=== PATIENT | male | born 1970 | race Caucasian/White ===

== ENCOUNTER 2017-10-09 12:30 | Inpatient (IN) | payer OTHER ==
[2017-10-09] MEDS ORDERED: morphine CARPU-JECT 4 MG/1 ML DISP.SYRIN IVPUSH ONE (12:55)
[2017-10-09] MEDS ORDERED: SODIUM CHLORIDE 1,000 ML IV STA (12:56)
[2017-10-09] MEDS ORDERED: ONDANSETRON 4 MG/2 ML VIAL IVPUSH ONE (12:56)
--- NOTE | 2017-10-09 13:02 | PDOC ---
History of Present Illness - General Chief Complaint: Pain Stated Complaint: RIGHT ABD PAIN Time Seen by Provider: 10/09/17 12:52 History Source: Patient Exam Limitations: No Limitations - History of Present Illness Travel History: No Initial Comments: 10/09/17 12:57 47 y/o male with RUQ pain since last evening around 6 pm. No fever or chills. Vomited once last night, no diarrhea. No fall or trauma. No SOB or chest pain. Patient has been sober for several years and had one beer last night. No rash, fever or chills. Pain goes to back mildly. Timing/Duration: reports: constant Quality: reports: moderate Abdominal Pain Onset Location: reports: RUQ Pain Radiation: reports: no radiation Past History - Past Medical History Allergies/Adverse Reactions: Allergies Allergy/AdvReac Type Severity Reaction Status Date / Time No Known Allergies Allergy Verified 10/09/17 12:53 Home Medications: Ambulatory Orders Wheat Dextrin [Benefiber] 1 each PO TID #0 powd.pack 02/10/16 Anemia: No Asthma: No Cancer: No Cardiac Disorders: No CVA: No COPD: No CHF: No Dementia: No Diabetes: No GI Disorders: Yes (RECTAL BLEEDING) Disorders: No HTN: Yes (DIET CONTROLLED) Hypercholesterolemia: Yes (DIET CONTROLLED) Liver Disease: No Seizures: No Thyroid Disease: No - Suicide/Smoking/Psychosocial Hx Smoking History: Never smoked Hx Alcohol Use: Yes (SOCIAL) Drug/Substance Use Hx: No Substance Use Type: None Hx Substance Use Treatment: No Review of Systems - Review of Systems Able to Perform ROS?: Yes Is the patient limited Norwegian proficient: Yes Constitutional: No: Chills, Fever Respiratory: No: Cough, Shortness of Breath Cardiac (ROS): No: Chest Pain ABD/GI: Yes: Nausea, Vomiting. No: Diarrhea : No: Dysuria All Other Systems: Reviewed and Negative *Physical Exam - Physical Exam General Appearance: Yes: Nourished, Appropriately Dressed, Mild Distress HEENT: positive: EOMI, MICHELLE, Normal ENT Inspection, Pharynx Normal Neck: positive: Trachea midline, Normal Thyroid, Supple. negative: Tender, Rigid, Carotid bruit Respiratory/Chest: positive: Lungs Clear, Normal Breath Sounds. negative: Chest Tender, Respiratory Distress Cardiovascular: positive: Regular Rhythm, Regular Rate, S1, S2. negative: Edema , JVD, Murmur Vascular Pulses: Femoral (R): 4+, Femoral (L): 4+, Carotid (R): 4+, Carotid (L) : 4+, Dorsalis-Pedis (R): 4+, Doralis-Pedis (L): 4+ Gastrointestinal/Abdominal: positive: Normal Bowel Sounds, Tender (RUQ tenderness, mild mid epigastric tenderness, no LLQ, LUQ or RLQ tenderness, +BS, no pulsatile mass ntoed), Flat, Soft. negative: Organomegaly, Hepatomegaly, Spleenomegaly Lymphatic: negative: Adenopathy, Tenderness, Other Musculoskeletal: positive: Normal Inspection. negative: CVA Tenderness Extremity: positive: Normal Capillary Refill, Normal Inspection, Normal Range of Motion. negative: Tender Integumentary: positive: Normal Color, Dry, Warm. negative: Rash, Ecchymosis, Bruising Neurologic: positive: dental hygienist II-XII NML intact, Fully Oriented, Alert, Normal Mood/ Affect, Normal Response, Motor Strength 01/29 ED Treatment Course - LABORATORY CBC & Chemistry Diagram: 10/09/17 13:00 10/09/17 13:00 - RADIOLOGY Radiology Studies Ordered: Category Date Time Status GALLBLADDER US [US] Stat Ultrasound 10/09/17 12:55 Ordered Progress Note - Progress Note Progress Note: Pt with RUQ tenderness, will obtain labs and pain control Will obtain US RUQ. At 2 pm, case will be endorsed to Dr. Cotto, further orders as per Dr. Cotto Pt feels better after pain medication *DC/Admit/Observation/Transfer Diagnosis at time of Disposition: Abdominal pain Qualifiers: Abdominal location: right upper quadrant Qualified Code(s): R10.11 - Right upper quadrant pain - Discharge Dispostion Condition at time of disposition: Good - Referrals Referrals: Floresita Nascimento MD [Primary Care Provider] - - Patient Instructions - Post Discharge Activity
[2017-10-09 13:12] LABS: HEMATOCRIT 45.1 % (35.4-49); HEMOGLOBIN 15.2 GM/dl (11.7-16.9); LYMPH % 6.6 % (8-40); MCH 32.2 pg (25.7-33.7); MCHC 33.6 g/dl (32.0-35.9); MEAN CELL VOLUME 95.7 fl (80-96); MEAN PLT VOLUME 8.9 fl (7.5-11.1); MONO % 4.9 % (3.8-10.2); NEUT % 86.5 % (42.8-82.8); PH,URINE 6.5 (4.5-8); PLATELET COUNT 296 K/MM3 (134-434); RBC 4.72 M/mm3 (4.00-5.60); RDW 11.8 % (11.9-15.9); URINE APPEARANCE Clear; URINE BILIRUBIN Negative (NEGATIVE); URINE BLOOD Negative (NEGATIVE); URINE COLOR YELLOW; URINE GLUCOSE (UA) Negative (NEGATIVE); URINE KETONE Negative (NEGATIVE); URINE NITRITE Negative (NEGATIVE); URINE PROTEIN Negative (NEGATIVE); URINE UROBILINOGEN 0.2 (0.2-1.0); WHITE BLOOD COUNT 12.6 K/mm3 (4.0-10.8)
[2017-10-09 13:27] LABS: ALBUMIN 4.4 g/dl (3.5-5.0); ALK PHOS 78 U/L (32-92); ANION GAP 8 (8-16); BILIRUBIN,TOTAL 0.7 mg/dl (0.2-1.0); BLOOD UREA NITROGEN 11 mg/dl (7-18); CALCIUM 9.4 mg/dl (8.4-10.2); CHLORIDE 100 mmol/L (98-107); CO2 25 mmol/L (22-28); CREATININE 0.8 mg/dl (0.6-1.3); GLUCOSE,RANDOM 130 mg/dl (74-106); LIPASE 32 U/L (22-51); SGOT/AST 30 U/L (10-42); SGPT/ALT 42 U/L (10-40); SODIUM 133 mmol/L (136-145)
[2017-10-09] MEDS ORDERED: METOCLOPRAMIDE HCL INJECTION 10 MG/2 ML VIAL IVPUSH ONE (15:09)
[2017-10-09] MEDS ORDERED: PIPERACILLIN/TAZOB 4.5 GM/100 ML PREMIX BAG IVPB ONE ×2 (15:09→15:45)
--- NOTE | 2017-10-09 15:16 | PDOC ---
*Physical Exam - Vital Signs Last Vital Signs Temp Pulse Resp BP Pulse Ox 98.8 F 67 16 154/89 96 10/09/17 12:52 10/09/17 12:52 10/09/17 12:52 10/09/17 12:52 10/09/17 12:52 ED Treatment Course - LABORATORY CBC & Chemistry Diagram: 10/09/17 13:00 10/09/17 13:00 - ADDITIONAL ORDERS Additional order review: Laboratory Results 10/09/17 10/09/17 13:00 13:00 Sodium 133 L Potassium 4.0 Chloride 100 Carbon Dioxide 25 Anion Gap 8 BUN 11 Creatinine 0.8 Creat Clearance w eGFR > 60 Random Glucose 130 H Calcium 9.4 Total Bilirubin 0.7 AST 30 ALT 42 H Alkaline Phosphatase 78 Total Protein 8.0 Albumin 4.4 Lipase 32 Urine Color Yellow Urine Appearance Clear Urine pH 6.5 Ur Specific [place] <= 1.005 Urine Protein Negative Urine Glucose (UA) Negative Urine Ketones Negative Urine Blood Negative Urine Nitrite Negative Urine Bilirubin Negative Urine Urobilinogen 0.2 Ur Leukocyte Esterase Negative 10/09/17 13:00 RBC 4.72 MCV 95.7 MCHC 33.6 RDW 11.8 L MPV 8.9 Neutrophils % 86.5 H Lymphocytes % 6.6 L Monocytes % 4.9 Eosinophils % 0.0 Basophils % 2.0 - Medications Given in the ED: ED Medications Discontinued Medications Generic Name Dose Route Start Last Admin Trade Name Freq PRN Reason Stop Dose Admin Sodium Chloride 1,000 mls @ 1,000 mls/hr 10/09/17 12:56 10/09/17 13:05 Normal Saline - IV 10/09/17 13:55 1,000 mls/hr ASDIR STA Administration Morphine Sulfate 4 mg 10/09/17 12:55 10/09/17 13:10 Morphine Injection - IVPUSH 10/09/17 12:56 4 mg ONCE ONE Administration Ondansetron HCl 4 mg 10/09/17 12:56 10/09/17 13:05 Zofran Injection IVPUSH 10/09/17 12:57 4 mg ONCE ONE Administration Medical Decision Making - Medical Decision Making 10/09/17 15:10 Patient presents with right upper quadrant pain. He was endorsed to me at [address] Jeff Grimm. Patient states his right upper quadrant pain is less severe now after having received morphine. He still has mild right upper quadrant tenderness on palpation along the hepatic margin. He has also developed hiccups. Laboratory studies reviewed. Patient has leukocytosis with a white blood cell count of 12.6. He also has 87% neutrophils. On liver function testing, his AST is normal, but his ALT is mildly elevated. His bilirubin is normal. His lipase is normal. Ultrasound of the right upper quadrant shows multiple gallstones with some stones in the region of the gallbladder neck. There is gallbladder wall thickening. There is positive pericholecystic fluid. The clinical symptoms as well as the ultrasound are consistent with acute cholecystitis. Patient will be admitted for IV antibiotics. Surgical consult will be obtained. Laboratory Results - last 24 hr 10/09/17 10/09/17 10/09/17 13:00 13:00 13:00 WBC 12.6 H RBC 4.72 Hgb 15.2 Hct 45.1 MCV 95.7 MCH 32.2 MCHC 33.6 RDW 11.8 L Plt Count 296 MPV 8.9 Neutrophils % 86.5 H Lymphocytes % 6.6 L Monocytes % 4.9 Eosinophils % 0.0 Basophils % 2.0 Sodium 133 L Potassium 4.0 Chloride 100 Carbon Dioxide 25 Anion Gap 8 BUN 11 Creatinine 0.8 Creat Clearance w eGFR > 60 Random Glucose 130 H Calcium 9.4 Total Bilirubin 0.7 AST 30 ALT 42 H Alkaline Phosphatase 78 Total Protein 8.0 Albumin 4.4 Lipase 32 Urine Color Yellow Urine Appearance Clear Urine pH 6.5 Ur Specific [place] <= 1.005 Urine Protein Negative Urine Glucose (UA) Negative Urine Ketones Negative Urine Blood Negative Urine Nitrite Negative Urine Bilirubin Negative Urine Urobilinogen 0.2 Ur Leukocyte Esterase Negative *DC/Admit/Observation/Transfer Diagnosis at time of Disposition: Acute cholecystitis Abdominal pain Qualifiers: Abdominal location: right upper quadrant Qualified Code(s): R10.11 - Right upper quadrant pain - Discharge Dispostion Condition at time of disposition: Improved Admit: Yes Decision to Admit order Date/Time: 10/09/17 15:15 Acute cholecystitis, needs antibiotics and surgical consult. Patient will be admitted. Patient endorsed to [employer] Jeff Vázquez. Patient Dorst to attending Dr. Robert Avalso. - Referrals - Patient Instructions - Post Discharge Activity
[2017-10-09] MEDS ORDERED: PIPERACILLIN/TAZOBACTAM 4.5 GM VIAL IVPB ONE (15:21)
--- NOTE | 2017-10-09 15:30 | HP ---
CHIEF COMPLAINT: RUQ pain PCP: none HISTORY OF PRESENT ILLNESS: This is a 47-year-old male with past medical history of hyperlipidemia presents for care today with 1 day of right upper quadrant pain. Patient states pain was a gradual onset which started after eating dinner last night. For dinner the patient had rice, lentils, chicken, avocado, and 2 beers. Patient started approximately 1-1/2 hours after finishing meal. Patient states he vomited multiple times throughout the night area patient remains nauseous at this time. Patient's states hiccups started approximately one hour prior to arrival in the hospital. He denies fevers, chills, chest pain, shortness of breath, diarrhea, dysuria. ER course was notable for: (1) U/S with gallstones and gall bladder thickening (2) Leukocytosis- 12.6 (3) LFT's WNL except ALT-42 Recent Travel: denies PAST MEDICAL HISTORY: see hpi PAST SURGICAL HISTORY: see hpi Social History: Smoking: denies Alcohol: occasional Drugs: denies Family History: Allergies No Known Allergies Allergy (Verified 10/09/17 12:53) HOME MEDICATIONS: Home Medications Medication Instructions Recorded Wheat Dextrin [Benefiber] 1 each PO TID #0 powd.pack 02/10/16 REVIEW OF SYSTEMS CONSTITUTIONAL: Absent: fever, chills, diaphoresis, generalized weakness, malaise, loss of appetite, weight change HEENT: Absent: rhinorrhea, nasal congestion, throat pain, throat swelling, difficulty swallowing, mouth swelling, ear pain, eye pain, visual changes CARDIOVASCULAR: Absent: chest pain, syncope, palpitations, irregular heart rate, lightheadedness , peripheral edema RESPIRATORY: Absent: cough, shortness of breath, dyspnea with exertion, orthopnea, wheezing, stridor, hemoptysis GASTROINTESTINAL: Present- abdominal pain, nausea, vomiting Absent: abdominal distension, diarrhea, constipation, melena, hematochezia GENITOURINARY: Absent: dysuria, frequency, urgency, hesitancy, hematuria, flank pain, genital pain MUSCULOSKELETAL: Absent: myalgia, arthralgia, joint swelling, back pain, neck pain SKIN: Absent: rash, itching, pallor HEMATOLOGIC/IMMUNOLOGIC: Absent: easy bleeding, easy bruising, lymphadenopathy, frequent infections ENDOCRINE: Absent: unexplained weight gain, unexplained weight loss, heat intolerance, cold intolerance NEUROLOGIC: Absent: headache, focal weakness or paresthesias, dizziness, unsteady gait, seizure, mental status changes, bladder or bowel incontinence PSYCHIATRIC: Absent: anxiety, depression, suicidal or homicidal ideation, hallucinations. PHYSICAL EXAMINATION Vital Signs - 24 hr 10/09/17 12:52 Temperature 98.8 F Pulse Rate 67 Respiratory 16 Rate Blood Pressure 154/89 O2 Sat by Pulse 96 Oximetry (%) GENERAL: Awake, alert, and fully oriented, in no acute distress. HEAD: Normal with no signs of trauma. EYES: Pupils equal, round and reactive to light, extraocular movements intact, sclera anicteric, conjunctiva clear. No lid lag. EARS, NOSE, THROAT: Ears normal, nares patent, oropharynx clear without exudates. Moist mucous membranes. NECK: Normal range of motion, supple without lymphadenopathy, JVD, or masses. LUNGS: Breath sounds equal, clear to auscultation bilaterally. No wheezes, and no crackles. No accessory muscle use. HEART: Regular rate and rhythm, normal S1 and S2 without murmur, rub or gallop. ABDOMEN: Soft, not distended, normoactive bowel sounds, no guarding, no rebound , no masses. TTP over RUQ. (+) Singh's sign. No hepatomegaly or splenomegaly. MUSCULOSKELETAL: Normal range of motion at all joints. No bony deformities or tenderness. No CVA tenderness. UPPER EXTREMITIES: 2+ pulses, warm, well-perfused. No cyanosis. No clubbing. No peripheral edema. LOWER EXTREMITIES: 2+ pulses, warm, well-perfused. No calf tenderness. No peripheral edema. NEUROLOGICAL: Cranial nerves II-XII intact. Normal speech. Normal gait. PSYCHIATRIC: Cooperative. Good eye contact. Appropriate mood and affect. SKIN: Warm, dry, normal turgor, no rashes or lesions noted, normal capillary refill. Laboratory Results - last 24 hr 10/09/17 10/09/17 10/09/17 13:00 13:00 13:00 WBC 12.6 H RBC 4.72 Hgb 15.2 Hct 45.1 MCV 95.7 MCH 32.2 MCHC 33.6 RDW 11.8 L Plt Count 296 MPV 8.9 Neutrophils % 86.5 H Lymphocytes % 6.6 L Monocytes % 4.9 Eosinophils % 0.0 Basophils % 2.0 Sodium 133 L Potassium 4.0 Chloride 100 Carbon Dioxide 25 Anion Gap 8 BUN 11 Creatinine 0.8 Creat Clearance w eGFR > 60 Random Glucose 130 H Calcium 9.4 Total Bilirubin 0.7 AST 30 ALT 42 H Alkaline Phosphatase 78 Total Protein 8.0 Albumin 4.4 Lipase 32 Urine Color Yellow Urine Appearance Clear Urine pH 6.5 Ur Specific [place] <= 1.005 Urine Protein Negative Urine Glucose (UA) Negative Urine Ketones Negative Urine Blood Negative Urine Nitrite Negative Urine Bilirubin Negative Urine Urobilinogen 0.2 Ur Leukocyte Esterase Negative ASSESSMENT/PLAN: A: 47-year-old male with history of hyperlipidemia admitted for cholecystitis. P: Cholecystitis - NPO - Zosyn 4.5g q8h - Surgical Consult - marylan Oliver - [place] - [place] F/E/N - NS@125 - NPO PPX - sqh Dispo- requires inpatient treatment of acute medical condition Visit type - Emergency Visit Emergency Visit: Yes ED Registration Date: 10/09/17 Care time: The patient presented to the Emergency Department on the above date and was hospitalized for further evaluation of their emergent condition. - New Patient This patient is new to me today: Yes Date on this admission: 10/10/17 - Critical Care Critical Care patient: No
[2017-10-09] MEDS ORDERED: PIPERACILLIN/TAZOB 4.5 GM/100 ML PRE-DOCKED IVPB SCH (16:15)
[2017-10-09 18:18] VITALS: BMI 33.6
[2017-10-09] MEDS: METOCLOPRAMIDE HCL 10 MG TABLET (FP) PO SCH ×2 (18:26→21:13)
[2017-10-09] MEDS: HEPARIN NA (PORCINE) 5,000 UNITS/ML 1ML VIAL SQ SCH (21:13)
[2017-10-10] MEDS ORDERED: PIPERACILLIN/TAZOB 4.5 GM/100 ML PRE-DOCKED IVPB ONE (02:00)
[2017-10-10] MEDS: SODIUM CHLORIDE 1,000 ML IV SCH (07:07)
[2017-10-10 08:32] LABS: BASO % 0.4 % (0-2.0); EOS % 0.5 % (0-4.5); HEMATOCRIT 41.2 % (35.4-49); HEMOGLOBIN 14.3 GM/dl (11.7-16.9); LYMPH % 24.1 % (8-40); MCHC 34.7 g/dl (32.0-35.9); MEAN CELL VOLUME 95.1 fl (80-96); MEAN PLT VOLUME 9.2 fl (7.5-11.1); MONO % 8.9 % (3.8-10.2); NEUT % 66.1 % (42.8-82.8); PLATELET COUNT 263 K/MM3 (134-434); RBC 4.33 M/mm3 (4.00-5.60); RDW 11.9 % (11.9-15.9)
[2017-10-10 08:54] LABS: ALBUMIN 3.8 g/dl (3.5-5.0); ALK PHOS 67 U/L (32-92); ANION GAP 9 (8-16); BLOOD UREA NITROGEN 10 mg/dl (7-18); CALCIUM 8.9 mg/dl (8.4-10.2); CHLORIDE 103 mmol/L (98-107); CO2 24 mmol/L (22-28); CREATININE 0.9 mg/dl (0.6-1.3); GLUCOSE,RANDOM 84 mg/dl (74-106); POTASSIUM 3.9 mmol/L (3.5-5.1); SGOT/AST 24 U/L (10-42); SGPT/ALT 36 U/L (10-40); SODIUM 136 mmol/L (136-145)
[2017-10-10] MEDS: HEPARIN NA (PORCINE) 5,000 UNITS/ML 1ML VIAL SQ SCH (09:19)
[2017-10-10] MEDS: METOCLOPRAMIDE HCL 10 MG TABLET (FP) PO SCH ×4 (09:19→21:46)
--- NOTE | 2017-10-10 09:52 | PN ---
Physical Exam: SUBJECTIVE: Patient seen and examined. Denies all c/o at present. OBJECTIVE: Vital Signs Period Temp Pulse Resp BP Sys/Aleman Pulse Ox Last 24 Hr 97.8 F-99.1 F 67-72 16-18 116-154/67-89 94-96 GENERAL: The patient is awake, alert, and fully oriented, in no acute distress. LUNGS: Breath sounds equal, clear to auscultation bilaterally, no wheezes, no crackles, no accessory muscle use. HEART: Regular rate and rhythm, S1, S2 without murmur, rub or gallop. ABDOMEN: SNTND NEUROLOGICAL: Cranial nerves II through XII grossly intact. Normal speech. Laboratory Results - last 24 hr 10/09/17 10/09/17 10/09/17 13:00 13:00 13:00 WBC 12.6 H RBC 4.72 Hgb 15.2 Hct 45.1 MCV 95.7 MCH 32.2 MCHC 33.6 RDW 11.8 L Plt Count 296 MPV 8.9 Neutrophils % 86.5 H Lymphocytes % 6.6 L Monocytes % 4.9 Eosinophils % 0.0 Basophils % 2.0 Sodium 133 L Potassium 4.0 Chloride 100 Carbon Dioxide 25 Anion Gap 8 BUN 11 Creatinine 0.8 Creat Clearance w eGFR > 60 Random Glucose 130 H Calcium 9.4 Total Bilirubin 0.7 AST 30 ALT 42 H Alkaline Phosphatase 78 Total Protein 8.0 Albumin 4.4 Lipase 32 Urine Color Yellow Urine Appearance Clear Urine pH 6.5 Ur Specific [place] <= 1.005 Urine Protein Negative Urine Glucose (UA) Negative Urine Ketones Negative Urine Blood Negative Urine Nitrite Negative Urine Bilirubin Negative Urine Urobilinogen 0.2 Ur Leukocyte Esterase Negative 10/10/17 10/10/17 06:00 06:00 WBC 8.0 D RBC 4.33 Hgb 14.3 Hct 41.2 MCV 95.1 MCH 33.0 MCHC 34.7 RDW 11.9 Plt Count 263 MPV 9.2 Neutrophils % 66.1 D Lymphocytes % 24.1 D Monocytes % 8.9 D Eosinophils % 0.5 D Basophils % 0.4 Sodium 136 Potassium 3.9 Chloride 103 Carbon Dioxide 24 Anion Gap 9 BUN 10 Creatinine 0.9 Creat Clearance w eGFR > 60 Random Glucose 84 D Calcium 8.9 Total Bilirubin 1.0 D AST 24 ALT 36 Alkaline Phosphatase 67 Total Protein 7.0 Albumin 3.8 Lipase Urine Color Urine Appearance Urine pH Ur Specific [place] Urine Protein Urine Glucose (UA) Urine Ketones Urine Blood Urine Nitrite Urine Bilirubin Urine Urobilinogen Ur Leukocyte Esterase Active Medications Generic Name Dose Route Start Last Admin Trade Name Freq PRN Reason Stop Dose Admin Diphenhydramine HCl 25 mg 10/09/17 16:03 Benadryl Injection - IVPB Q8H PRN AGITATION Heparin Sodium (Porcine) 5,000 unit 10/09/17 22:00 10/10/17 09:19 Heparin - SQ 5,000 unit BID EDUARDA Administration Sodium Chloride 1,000 mls @ 75 mls/hr 10/10/17 05:15 10/10/17 07:07 Normal Saline - IV 75 mls/hr ASDIR EDUARDA Administration Metoclopramide HCl 10 mg 10/09/17 18:00 10/10/17 09:19 Reglan - PO 10 mg QID EDUARDA Administration Piperacillin Sod/Tazobactam Sod 4.5 gm 10/09/17 16:15 Zosyn 4.5gm Ivpb (Pre-Docked) IVPB Q8H EDUARDA Imaging: RAD/CHEST PA LAT ADDENDUM ADDENDUM #1 Michelle LOCKETT MD notified of findings on 10/10/2017 at 0718 hours. Patient admitted. ORIGINAL REPORT Chest: Right upper quadrant pain. Cholecystitis Imaging reveals an elevated right hemidiaphragm, normal heart, normal aorta and prominent [place]. The lungs are well-inflated. An acute infiltrate or failure is not seen. The angles are sharp and the soft tissues are intact. The may be some focal pleural thickening along the lower left chest wall. The bones and soft tissues appear intact. Impression: No acute pathology. Elevated right hemidiaphragm. Focal pleural thickening lower left chest wall. Correlation and follow-up recommended. CT may be of help for further evaluation. Reported By: Jeff Wolf MD 10/10/[address] chest with IV contrast. Indication: Focal pleural thickening on chest x-ray. Technique: CT of the chest performed following intravenous administration of 100 mL of Omnipaque 320 contrast. Comparison: No prior chest CT. Findings: Large airways of the central tracheobronchial tree are patent with no discrete endobronchial nodularity. There is dependent subsegmental atelectasis in both lung bases. Subsegmental atelectasis versus scarring noted in the lingula and posterior right upper lobe. No evidence of pulmonary mass. No pleural effusion or pneumothorax. Heart is prominent in size. No pericardial effusion. Normal caliber thoracic aorta and main pulmonary arteries. No pathologically enlarged mediastinal, hilar or axillary lymph nodes by CT size criteria. Evaluation of the upper abdomen demonstrates distended gallbladder with wall thickening and pericholecystic fat stranding. No fracture in the visualized osseous structures. Impression: 1. Subsegmental atelectasis in both lung bases. Linear scarring versus atelectasis in the posterior right upper lobe and lingula. 2. Distended gallbladder with wall thickening and pericholecystic fat stranding. Please correlate clinically for acute cholecystitis. Reported By: Michael Abel DO 10/10/17 1312 ASSESSMENT/PLAN: A: 47-year-old male with history of hyperlipidemia admitted for cholecystitis. Given CXR findings- CT chest with IV contrast. P: Cholecystitis - NPO - Zosyn 4.5g q8h - Surgical Consult - reglan Hiccups - [place] - [place] F/E/N - NS@125 - NPO PPX - sqh Dispo- requires inpatient treatment of acute medical condition Visit type - Emergency Visit Emergency Visit: Yes ED Registration Date: 10/09/17 Care time: The patient presented to the Emergency Department on the above date and was hospitalized for further evaluation of their emergent condition. - New Patient This patient is new to me today: No - Critical Care Critical Care patient: No
--- NOTE | 2017-10-10 10:17 | CONSULT ---
- Consultation REQUESTING PROVIDER: Gurpreet SAMUEL CONSULT REQUEST: We have been asked to surgically evaluate this patient for abdominal pain PCP:Jeff Vázquez NP HISTORY OF PRESENT ILLNESS:47 y/o male presented w/ nausea and vomiting and RUQ abdominal pain after eating; he came to the ER for evaluation; w/u is c/w acute cholecystitis and cholelithiasis; he feels better since admission. PMHx: hyperlipidemia PSHx: none Home Medications Medication Instructions Recorded Wheat Dextrin [Benefiber] 1 each PO TID #0 powd.pack 02/10/16 Allergies Allergy/AdvReac Type Severity Reaction Status Date / Time No Known Allergies Allergy Verified 10/09/17 12:53 PHYSICAL EXAM: GENERAL: Awake, alert, and fully oriented, in no acute distress. HEAD: Normal with no signs of trauma. EYES: sclera anicteric, conjunctiva clear. ABDOMEN: Soft, nontender, not distended, normoactive bowel sounds, no guarding, no rebound, no masses. No organomegaly. No hernias. MUSCULOSKELETAL: Normal ROM at all joints. No bony deformities or tenderness. No CVA tenderness. UPPER EXTREMITIES: 2+ pulses, warm, well-perfused. No cyanosis. Cap refill <2 seconds. No peripheral edema. LOWER EXTREMITIES: 2+ pulses, warm, well-perfused. No calf tenderness. No peripheral edema. NEUROLOGICAL: Normal speech, gait not observed. PSYCH: Cooperative. Good eye contact. Appropriate mood and affect. SKIN: Warm, dry, normal turgor, no rashes or lesions noted. Vital Signs Temperature 97.8 F 10/10/17 06:05 Pulse Rate 68 10/10/17 09:25 Respiratory Rate 18 10/10/17 09:25 Blood Pressure 124/67 10/10/17 09:25 O2 Sat by Pulse Oximetry (%) 96 10/10/17 09:25 Lab Results WBC 8.0 K/mm3 (4.0-10.8) D 10/10/17 06:00 RBC 4.33 M/mm3 (4.00-5.60) 10/10/17 06:00 Hgb 14.3 GM/dl (11.7-16.9) 10/10/17 06:00 Hct 41.2 % (35.4-49) 10/10/17 06:00 MCV 95.1 fl (80-96) 10/10/17 06:00 MCHC 34.7 g/dl (32.0-35.9) 10/10/17 06:00 RDW 11.9 % (11.9-15.9) 10/10/17 06:00 Plt Count 263 K/MM3 (134-434) 10/10/17 06:00 Sodium 136 mmol/L (136-145) 10/10/17 06:00 Potassium 3.9 mmol/L (3.5-5.1) 10/10/17 06:00 Chloride 103 mmol/L (98-107) 10/10/17 06:00 Carbon Dioxide 24 mmol/L (22-28) 10/10/17 06:00 Anion Gap 9 (8-16) 10/10/17 06:00 BUN 10 mg/dl (7-18) 10/10/17 06:00 Creatinine 0.9 mg/dl (0.6-1.3) 10/10/17 06:00 Random Glucose 84 mg/dl (74-106) D 10/10/17 06:00 Calcium 8.9 mg/dl (8.4-10.2) 10/10/17 06:00 US; labs reviewed IMP: cholecystitis; cholelithiasis PLAN: Agree w/ tx. to date; for lap jonas possible open 10/11/17; r/b/t/a's d/w the patient in [place] and he agrees to same. Bruno Foley MD FACS Visit type - Case Type Case Type: ED Admission - Emergency Emergency Visit: Yes ED Registration Date: 10/09/17 Care time: The patient presented to the Emergency Department on the above date and was hospitalized for further evaluation of their emergent condition. - New patient This patient is new to me today: Yes Date on this admission: 10/10/17 - Critical Care Critical Care patient: No
[2017-10-10 10:49] LABS: INR 1.15 (0.82-1.09); PROTHROMBIN TIME (PATIENT) 12.8 SEC (10.2-13.0)
[2017-10-10] MEDS ORDERED: PIPERACILLIN/TAZOB 3.375 GM 3.375 GM in DEXTROSE 5%-WATER - 50 ML IVPB SCH (11:15)
[2017-10-10] MEDS: PIPERACILLIN/TAZOB 3.375 GM 3.375 GM/50 ML BAG IVPB SCH (17:52)
[2017-10-11] MEDS: PIPERACILLIN/TAZOB 3.375 GM 3.375 GM/50 ML BAG IVPB SCH ×2 (01:21→09:27)
--- NOTE | 2017-10-11 07:24 | PN ---
Physical Exam: SUBJECTIVE: Patient seen and examined, reports right upper quadrant pain, denies any tactile fever. OBJECTIVE: Patient is a 47 y/o male with a past medical history of hyperlipidemia, patient was admitted from the emergency department for acute cholecytitis. Vital Signs Period Temp Pulse Resp BP Sys/Aleman Pulse Ox Last 24 Hr 98.1 F-98.4 F 60-69 18-19 113-125/64-72 94-96 GENERAL: The patient is awake, alert, and fully oriented, in no acute distress. HEAD: Normal with no signs of trauma. EYES: PERRL, extraocular movements intact, sclera anicteric, conjunctiva clear. No ptosis. ENT: Ears normal, nares patent, oropharynx clear without exudates, moist mucous membranes. NECK: Trachea midline, full range of motion, supple. LUNGS: Breath sounds equal, clear to auscultation bilaterally, no wheezes, no crackles, no accessory muscle use. HEART: Regular rate and rhythm, S1, S2 without murmur, rub or gallop. ABDOMEN: Soft, + moise's sign, nondistended, normoactive bowel sounds, no guarding, no rebound, no hepatosplenomegaly, no masses. EXTREMITIES: 2+ pulses, warm, well-perfused, no edema. NEUROLOGICAL: Cranial nerves II through XII grossly intact. Normal speech, gait not observed. PSYCH: Normal mood, normal affect. SKIN: Warm, dry, normal turgor, no rashes or lesions noted Laboratory Results - last 24 hr 10/10/17 10/10/17 10/10/17 05:30 06:00 06:00 WBC 8.0 D RBC 4.33 Hgb 14.3 Hct 41.2 MCV 95.1 MCH 33.0 MCHC 34.7 RDW 11.9 Plt Count 263 MPV 9.2 Neutrophils % 66.1 D Lymphocytes % 24.1 D Monocytes % 8.9 D Eosinophils % 0.5 D Basophils % 0.4 PT with INR INR Sodium 136 Potassium 3.9 Chloride 103 Carbon Dioxide 24 Anion Gap 9 BUN 10 Creatinine 0.9 Creat Clearance w eGFR > 60 Random Glucose 84 D Calcium 8.9 Total Bilirubin 1.0 D AST 24 ALT 36 Alkaline Phosphatase 67 Total Protein 7.0 Albumin 3.8 Blood Type A POSITIVE Antibody Screen 01/14/18 01/14/18 06:00 10:40 WBC RBC Hgb Hct MCV MCH MCHC RDW Plt Count MPV Neutrophils % Lymphocytes % Monocytes % Eosinophils % Basophils % PT with INR 12.8 INR 1.15 Sodium Potassium Chloride Carbon Dioxide Anion Gap BUN Creatinine Creat Clearance w eGFR Random Glucose Calcium Total Bilirubin AST ALT Alkaline Phosphatase Total Protein Albumin Blood Type A POSITIVE Antibody Screen Negative Active Medications Generic Name Dose Route Start Last Admin Trade Name Freq PRN Reason Stop Dose Admin Diphenhydramine HCl 25 mg 10/09/17 16:03 Benadryl Injection - IVPB Q8H PRN AGITATION Sodium Chloride 1,000 mls @ 75 mls/hr 10/10/17 05:15 10/10/17 07:07 Normal Saline - IV 75 mls/hr ASDIR EDUARDA Administration Piperacillin Sod/Tazobactam Sod 3.375 gm in 50 mls @ 100 mls/hr 10/10/17 11: 55 10/11/17 01:21 Zosyn 3.375gm Ivpb (Pre-Docked) IVPB 10/11/17 11:14 100 mls/hr Q8H-IV EDUARDA Administration Protocol Metoclopramide HCl 10 mg 10/09/17 18:00 10/10/17 21:46 Reglan - PO 10 mg QID EDUARDA Administration Imaging: RAD/CHEST PA LAT ADDENDUM ADDENDUM #1 Michelle LOCKETT MD notified of findings on 10/10/2017 at 0718 hours. Patient admitted. ORIGINAL REPORT Chest: Right upper quadrant pain. Cholecystitis Imaging reveals an elevated right hemidiaphragm, normal heart, normal aorta and prominent [place]. The lungs are well-inflated. An acute infiltrate or failure is not seen. The angles are sharp and the soft tissues are intact. The may be some focal pleural thickening along the lower left chest wall. The bones and soft tissues appear intact. Impression: No acute pathology. Elevated right hemidiaphragm. Focal pleural thickening lower left chest wall. Correlation and follow-up recommended. CT may be of help for further evaluation. Reported By: Jeff Wolf MD 10/10/[address] chest with IV contrast. Indication: Focal pleural thickening on chest x-ray. Technique: CT of the chest performed following intravenous administration of 100 mL of Omnipaque 320 contrast. Comparison: No prior chest CT. Findings: Large airways of the central tracheobronchial tree are patent with no discrete endobronchial nodularity. There is dependent subsegmental atelectasis in both lung bases. Subsegmental atelectasis versus scarring noted in the lingula and posterior right upper lobe. No evidence of pulmonary mass. No pleural effusion or pneumothorax. Heart is prominent in size. No pericardial effusion. Normal caliber thoracic aorta and main pulmonary arteries. No pathologically enlarged mediastinal, hilar or axillary lymph nodes by CT size criteria. Evaluation of the upper abdomen demonstrates distended gallbladder with wall thickening and pericholecystic fat stranding. No fracture in the visualized osseous structures. Impression: 1. Subsegmental atelectasis in both lung bases. Linear scarring versus atelectasis in the posterior right upper lobe and lingula. 2. Distended gallbladder with wall thickening and pericholecystic fat stranding. Please correlate clinically for acute cholecystitis. Reported By: Michael Abel DO 10/10/17 1312 ASSESSMENT/PLAN: 1) GI acute cholecystits -NPO --> IVF, pending OR today - continue zosyn 4.5g TID, appreciate ID input (Dr Ching) for ID improvement - surgery, Dr Foley, consulted and followeing F/E/N - NS@125 - NPO PPX -hold AC for OR today patient is medically optimized for procedure Dispo- requires inpatient treatment of acute medical condition Visit type - Emergency Visit Emergency Visit: Yes ED Registration Date: 10/09/17 Care time: The patient presented to the Emergency Department on the above date and was hospitalized for further evaluation of their emergent condition. - New Patient This patient is new to me today: Yes Date on this admission: 10/11/17 - Critical Care Critical Care patient: No - Discharge Referral Referred to [facility] Med P.C.: No
--- NOTE | 2017-10-11 08:54 | PN ---
Progress Note (short form) - Note Progress Note: ID Consult dictated Acute cholecystitis Leukocytosis R/O biliary sepsis Pending cultures empiric zosyn
[2017-10-11] MEDS: METOCLOPRAMIDE HCL 10 MG TABLET (FP) PO SCH (09:27)
[2017-10-11 09:32] LABS: BASO % 0.3 % (0-2.0); HEMOGLOBIN 13.9 GM/dl (11.7-16.9); LYMPH % 21.8 % (8-40); MCH 31.8 pg (25.7-33.7); MEAN CELL VOLUME 96.5 fl (80-96); MEAN PLT VOLUME 8.9 fl (7.5-11.1); MONO % 7.9 % (3.8-10.2); PLATELET COUNT 274 K/MM3 (134-434); RBC 4.36 M/mm3 (4.00-5.60); RDW 11.9 % (11.9-15.9); WHITE BLOOD COUNT 6.7 K/mm3 (4.0-10.8)
--- NOTE | 2017-10-11 09:57 | CONS ---
DATE OF CONSULTATION: 10/11/2017 INFECTIOUS DISEASE CONSULTATION HISTORY OF PRESENT ILLNESS: Patient is a 47-year-old nondiabetic male evaluated for acute cholecystitis. He was admitted to the hospital on October 09, 2017, after developing right upper quadrant abdominal pain the evening prior. He had developed postprandial right upper quadrant abdominal pain associated with nausea and vomiting. He presented to the emergency room where he was found to have abdominal tenderness. Imaging studies revealed cholelithiasis with gallbladder thickening, pericholecystic fluid, and a dilated common bile duct. In addition, he was noted to have an elevated white blood cell count. He was empirically treated with Zosyn. He was seen in consultation by Surgery and is scheduled to have a cholecystectomy this morning. The patient is a nondiabetic. At the present time, he is awake and alert. He has minimal abdominal discomfort, no recurrent nausea or vomiting. He reports having a bowel movement yesterday. PAST MEDICAL HISTORY: Positive for hyperlipidemia. ALLERGIES: No known allergies. MEDICATIONS: Include Zosyn, Benadryl, Reglan. SOCIAL HISTORY: He is a non-smoker, occasional EtOH, lives at home with family members. SYSTEMS REVIEW: Neurologic: No loss of consciousness, seizure activity, focal weakness. Cardiac: Negative chest pain or palpitations. Respiratory: Negative cough or sputum production. Gastrointestinal: As per HPI. Genitourinary: Negative for UTI. LABORATORY DATA: White count on admission 12.6, presently 8.0, hematocrit 41.2, platelet count 263. BUN 10, creatinine 0.9. ALT 42. Blood cultures pending. Urinalysis leukocyte esterase. PHYSICAL EXAMINATION: General: He is awake and alert, supine in bed, in no acute distress. Vital Signs: Temperature 98.2, blood pressure 110/61, pulse 64 regular, respirations 16 per minute. HEENT: Sclerae anicteric. Heart: Sounds S1, S2. Lungs: Clear bilaterally. No rhonchi, rales, or wheezing. Abdomen: Soft. There are mild right upper quadrant and epigastric tenderness to palpation. No mass, rebound, rigidity. Extremities: One plus edema. IMPRESSION: 1. Acute cholecystitis. 2. Leukocytosis, rule out biliary sepsis. PLAN: Await culture results. Continue empiric coverage biliary tract pathogens with Zosyn. Surgical followup. We will follow. Thank you for the kind referral. ANGELIQUE KUMAR M.D. KAYLA/[id number]
[2017-10-11 10:03] LABS: ALBUMIN 3.6 g/dl (3.5-5.0); ALK PHOS 76 U/L (32-92); ANION GAP 10 (8-16); BILIRUBIN,TOTAL 0.8 mg/dl (0.2-1.0); BLOOD UREA NITROGEN 12 mg/dl (7-18); CALCIUM 8.8 mg/dl (8.4-10.2); CHLORIDE 102 mmol/L (98-107); CO2 22 mmol/L (22-28); CREATININE 0.8 mg/dl (0.6-1.3); GLUCOSE,RANDOM 79 mg/dl (74-106); POTASSIUM 3.7 mmol/L (3.5-5.1); SGOT/AST 29 U/L (10-42); SGPT/ALT 44 U/L (10-40); SODIUM 134 mmol/L (136-145)
[2017-10-11] MEDS ORDERED: FAMOTIDINE IV 20 MG/12 ML VIAL IVPUSH SCH (12:15)
[2017-10-11] MEDS: FAMOTIDINE 20 MG/50 ML IVPB 20 MG/50 ML MG IVPB SCH ×2 (12:41→21:09)
[2017-10-11] MEDS: SODIUM CHLORIDE 1,000 ML IV SCH (12:42)
[2017-10-11] MEDS ORDERED: MIDAZOLAM HCL 2 MG/2 ML SINGLE DOSE VIAL ONE (15:06)
[2017-10-11] MEDS ORDERED: BUPIVACAINE HCL/PF 0.5% (5MG/ML) 10 ML VIAL ONE (15:10)
[2017-10-11] MEDS ORDERED: LIDOCAINE HCL 2% (20ML MULTI-DOSE VIAL) NR ONE (15:10)
[2017-10-11] MEDS ORDERED: LIDOCAINE HCL 1%, 10 MG/ML (20ML VIAL) ONE (15:10)
[2017-10-11] MEDS ORDERED: BUPIVACAINE HCL/PF 2.5 MG/ML - 30 ML VIAL IJ ONE (15:10)
[2017-10-11] MEDS ORDERED: PROPOFOL 20 ML ONE ×2 (15:13)
[2017-10-11] MEDS ORDERED: SUCCINYLCHOLINE CHLORIDE 200 MG/10 ML VIAL ONE (15:13)
[2017-10-11] MEDS ORDERED: ROCURONIUM BROMIDE 50 MG/5 ML VIAL ONE (15:14)
--- NOTE | 2017-10-11 15:45 | EKG ---
Test Reason : Blood Pressure : / mmHG Vent. Rate : 066 BPM Atrial Rate : 066 BPM P-R Int : 188 ms QRS Dur : 112 ms QT Int : 418 ms P-R-T Axes : 018 060 027 degrees QTc Int : 438 ms SINUS RHYTHM RSR' OR QR PATTERN IN V1 SUGGESTS RIGHT VENTRICULAR CONDUCTION DELAY NO PREVIOUS ECGS AVAILABLE Confirmed by INESSA BARRIENTOS MD ([id number]) on 10/11/2017 3:44:57 PM Referred By: DR VIRAMONTES Confirmed By:INESSA BARRIENTOS MD
[2017-10-11] MEDS ORDERED: ONDANSETRON 4 MG/2 ML VIAL ONE (15:50)
[2017-10-11] MEDS ORDERED: DEXAMETHASONE SOD PHOSPHATE 4 MG/1 ML VIAL ONE (15:50)
[2017-10-11] MEDS ORDERED: BUPIVACAINE HCL/PF 0.25% (2.5MG/ML) 10 ML VIAL IJ ONE (17:24)
--- NOTE | 2017-10-11 17:25 | OP ---
Operative Note - Note: Operative Date: 10/11/17 Pre-Operative Diagnosis: acute cholecystitis/cholelithiasis Operation: lap cholecystectomy Surgeon: Bruno Foley Senior Systems Administrator: Tres Lockwood Anesthesia: General Specimens Removed: gallbladder and contents Estimated Blood Loss (mls): 100 Drains & Tubes with Location: 10 mm SHANNA
[2017-10-11] MEDS ORDERED: morphine CARPU-JECT 10 MG/1 ML DISP.SYRIN IVPUSH PRN (17:26)
[2017-10-11] MEDS ORDERED: ACETAMINOPHEN 325 MG TABLET (FP) PO PRN ×2 (17:27→18:15)
[2017-10-11] MEDS ORDERED: ONDANSETRON 4 MG/2 ML VIAL IVPUSH PRN (17:29)
[2017-10-11] MEDS ORDERED: ELECTROLYTE-148 SOLN 1,000 ML IV SCH (17:30)
--- NOTE | 2017-10-11 17:31 | SURG ---
Surgery [employer] Note [employer] Manager: Tres Lockwood PA-C Date of Service: 10/11/17 Diagnosis: acute cholecystitis/cholelithiasis Procedure: Laparoscopic cholecystectomy I was present for the entirety of the operative procedure. For further detail, please refer to operative report. Visit type - Case Type Case Type: ED Admission - Emergency Emergency Visit: Yes ED Registration Date: 10/09/17 Care time: The patient presented to the Emergency Department on the above date and was hospitalized for further evaluation of their emergent condition. - New patient This patient is new to me today: Yes Date on this admission: 10/11/17
[2017-10-11] MEDS ORDERED: oxyCODONE HCL 5 MG TABLET PO PRN (18:15)
[2017-10-11] MEDS ORDERED: LACTATED RINGERS SOLUTION 1,000 ML IV SCH (21:00)
[2017-10-12] MEDS: SODIUM CHLORIDE 1,000 ML IV SCH (07:54)
--- NOTE | 2017-10-12 08:08 | PN ---
Progress Note (short form) - Note Progress Note: Attending Surgeon POD #1 C/O gas; o/w no c/o. VSS AF abdomen-soft; port site tenderness; dressings c/d/i; SHANNA output noted; o/w negative. IMP: doing well PLAN: OOB; advance diet as tolerated; continue SHANNA drain Bruno Foley MD FACS
[2017-10-12 08:27] LABS: HEMOGLOBIN 13.8 GM/dl (11.7-16.9)
--- NOTE | 2017-10-12 09:01 | PN ---
Physical Exam: SUBJECTIVE: Patient seen and examined, sitting up in bed, reports feeling hungry , reports pain to incision site. OBJECTIVE:Patient is a 47 y/o male with a past medical history of hyperlipidemia , patient was admitted from the emergency department for acute cholecytitis and s/p lap cholecytectomy (10/11/17) Vital Signs Period Temp Pulse Resp BP Sys/Aleman Pulse Ox Last 24 Hr 97.9 F-99.3 F 67-100 12-20 116-158/67-88 93-98 GENERAL: The patient is awake, alert, and fully oriented, in no acute distress. HEAD: Normal with no signs of trauma. EYES: PERRL, extraocular movements intact, sclera anicteric, conjunctiva clear. No ptosis. ENT: Ears normal, nares patent, oropharynx clear without exudates, moist mucous membranes. NECK: Trachea midline, full range of motion, supple. LUNGS: Breath sounds equal, clear to auscultation bilaterally, no wheezes, no crackles, no accessory muscle use. HEART: Regular rate and rhythm, S1, S2 without murmur, rub or gallop. ABDOMEN: Soft, hypoactive bowel sounds, SHANNA scant serrous drainage, tenderness to trochar sites, no guarding, no rebound, no hepatosplenomegaly, no masses. EXTREMITIES: 2+ pulses, warm, well-perfused, no edema. NEUROLOGICAL: Cranial nerves II through XII grossly intact. Normal speech, gait not observed. PSYCH: Normal mood, normal affect. SKIN: Warm, dry, normal turgor, no rashes or lesions noted Laboratory Results - last 24 hr 10/11/17 10/11/17 06:00 06:00 WBC 6.7 RBC 4.36 Hgb 13.9 Hct 42.0 MCV 96.5 H MCH 31.8 MCHC 33.0 RDW 11.9 Plt Count 274 MPV 8.9 Neutrophils % 68.0 Lymphocytes % 21.8 Monocytes % 7.9 Eosinophils % 2.0 D Basophils % 0.3 Sodium 134 L Potassium 3.7 Chloride 102 Carbon Dioxide 22 Anion Gap 10 BUN 12 Creatinine 0.8 Creat Clearance w eGFR > 60 Random Glucose 79 Calcium 8.8 Total Bilirubin 0.8 AST 29 D ALT 44 H D Alkaline Phosphatase 76 Total Protein 7.0 Albumin 3.6 Active Medications Generic Name Dose Route Start Last Admin Trade Name Freq PRN Reason Stop Dose Admin Acetaminophen 650 mg 10/11/17 17:27 Tylenol - PO Q6H PRN Fever > 100.3F Acetaminophen 650 mg 10/11/17 18:15 Tylenol - PO 10/14/17 18:14 Q4H PRN Diphenhydramine HCl 25 mg 10/09/17 16:03 Benadryl Injection - IVPB Q8H PRN AGITATION Fentanyl 50 mcg 10/11/17 17:29 10/11/17 17:50 Sublimaze Injection - IVPUSH 25 mcg [id number] PRN Administration PAIN-PACU ORDER X 4 DOSES ONLY Sodium Chloride 1,000 mls @ 75 mls/hr 10/10/17 05:15 10/12/17 07:54 Normal Saline - IV Not Given ASDIR EDUARDA Famotidine/Sodium Chloride 20 mg in 50 mls @ 100 mls/hr 10/11/17 12:45 21:09 Pepcid 20 Mg Premixed Ivpb - IVPB 100 mls/hr BID EDUARDA Administration Lactated Ringer's 1,000 mls @ 75 mls/hr 10/11/17 21:00 10/11/17 21:00 Lactated Ringers Solution IV 75 mls/hr ASDIR EDUARDA Administration Morphine Sulfate 4 mg 10/11/17 17:26 10/12/17 07:53 Morphine Injection - IVPUSH 4 mg Q4H PRN Administration PAIN LEVEL 4 - 6 Ondansetron HCl 4 mg 10/11/17 17:29 Zofran Injection IVPUSH Q6H PRN NAUSEA AND/OR VOMITING Oxycodone HCl 10 mg 10/11/17 18:15 Roxicodone - PO Q4H PRN PAIN LEVEL 1 - 3 Microbiology 10/10/17 11:30 Blood - Peripheral Venous Blood Culture - Preliminary NO GROWTH OBTAINED AFTER 24 HOURS, INCUBATION TO CONTINUE FOR 4 DAYS. 10/10/17 11:30 Blood - Peripheral Venous Blood Culture - Preliminary NO GROWTH OBTAINED AFTER 24 HOURS, INCUBATION TO CONTINUE FOR 4 DAYS. imaging: RAD/CHEST PA LAT ADDENDUM ADDENDUM #1 Michelle LOCKETT MD notified of findings on 10/10/2017 at 0718 hours. Patient admitted. ORIGINAL REPORT Chest: Right upper quadrant pain. Cholecystitis Imaging reveals an elevated right hemidiaphragm, normal heart, normal aorta and prominent [place]. The lungs are well-inflated. An acute infiltrate or failure is not seen. The angles are sharp and the soft tissues are intact. The may be some focal pleural thickening along the lower left chest wall. The bones and soft tissues appear intact. Impression: No acute pathology. Elevated right hemidiaphragm. Focal pleural thickening lower left chest wall. Correlation and follow-up recommended. CT may be of help for further evaluation. Reported By: Jeff Wolf MD 10/10/[address] chest with IV contrast. Indication: Focal pleural thickening on chest x-ray. Technique: CT of the chest performed following intravenous administration of 100 mL of Omnipaque 320 contrast. Comparison: No prior chest CT. Findings: Large airways of the central tracheobronchial tree are patent with no discrete endobronchial nodularity. There is dependent subsegmental atelectasis in both lung bases. Subsegmental atelectasis versus scarring noted in the lingula and posterior right upper lobe. No evidence of pulmonary mass. No pleural effusion or pneumothorax. Heart is prominent in size. No pericardial effusion. Normal caliber thoracic aorta and main pulmonary arteries. No pathologically enlarged mediastinal, hilar or axillary lymph nodes by CT size criteria. Evaluation of the upper abdomen demonstrates distended gallbladder with wall thickening and pericholecystic fat stranding. No fracture in the visualized osseous structures. Impression: 1. Subsegmental atelectasis in both lung bases. Linear scarring versus atelectasis in the posterior right upper lobe and lingula. 2. Distended gallbladder with wall thickening and pericholecystic fat stranding. Please correlate clinically for acute cholecystitis. Reported By: Michael Abel DO 10/10/17 1312 ASSESSMENT/PLAN: 1) GI acute cholecystits, s/p lap jonas POD #1 - clear liquid diet - continue zosyn 4.5g TID, appreciate ID input (Dr Ching) for ID improvement - surgery, Dr Foley, consulted and followeing F/E/N - NS@125 - NPO PPX -hold AC for OR today patient is medically optimized for procedure Dispo- requires inpatient treatment of acute medical condition Visit type - Emergency Visit Emergency Visit: Yes ED Registration Date: 10/09/17 Care time: The patient presented to the Emergency Department on the above date and was hospitalized for further evaluation of their emergent condition. - New Patient This patient is new to me today: No - Critical Care Critical Care patient: No - Discharge Referral Referred to [facility] Med [facility]C.: No
[2017-10-12 09:09] LABS: BASO % 0.6 % (0-2.0); EOS % 0.2 % (0-4.5); HEMATOCRIT 41.4 % (35.4-49); LYMPH % 12.8 % (8-40); MCH 31.8 pg (25.7-33.7); MCHC 33.3 g/dl (32.0-35.9); MEAN CELL VOLUME 95.6 fl (80-96); MEAN PLT VOLUME 8.7 fl (7.5-11.1); MONO % 7.8 % (3.8-10.2); NEUT % 78.6 % (42.8-82.8); PLATELET COUNT 286 K/MM3 (134-434); RBC 4.33 M/mm3 (4.00-5.60); RDW 11.6 % (11.9-15.9); WHITE BLOOD COUNT 9.6 K/mm3 (4.0-10.8)
[2017-10-12 09:12] LABS: ALBUMIN 3.4 g/dl (3.5-5.0); ALK PHOS 75 U/L (32-92); ANION GAP 7 (8-16); BILIRUBIN,TOTAL 0.7 mg/dl (0.2-1.0); BLOOD UREA NITROGEN 15 mg/dl (7-18); CALCIUM 8.6 mg/dl (8.4-10.2); CHLORIDE 103 mmol/L (98-107); CO2 22 mmol/L (22-28); CREATININE 0.7 mg/dl (0.6-1.3); GLUCOSE,RANDOM 89 mg/dl (74-106); MAGNESIUM 1.9 mg/dL (1.8-2.4); PHOSPHOROUS 2.8 mg/dl (2.5-4.6); POTASSIUM 3.8 mmol/L (3.5-5.1); SGOT/AST 38 U/L (10-42); SGPT/ALT 55 U/L (10-40); SODIUM 132 mmol/L (136-145); TOT PROT 6.9 g/dl (6.4-8.3)
[2017-10-12] MEDS: FAMOTIDINE 20 MG/50 ML IVPB 20 MG/50 ML MG IVPB SCH ×2 (09:26→21:40)
--- NOTE | 2017-10-12 10:03 | PN ---
Progress Note (short form) - Note Progress Note: 47M POD1 s/p lap cholecystectomy under GA-ETT doing well. Pt states that pain is well controlled, reports no anesthetic complications. Sensory and motor function intact in bilateral lower extremities.
--- NOTE | 2017-10-12 16:35 | OP ---
DATE OF OPERATION: 10/11/2017 PREOPERATIVE DIAGNOSES: Acute cholecystitis, cholelithiasis. POSTOPERATIVE DIAGNOSES: Acute cholecystitis, cholelithiasis. PROCEDURE: Laparoscopic cholecystectomy. SURGEON: Bruno Foley MD OTA: Tres Lockwood PA-C ANESTHESIA: General. OPERATIVE FINDINGS: Acute cholecystitis, cholelithiasis, and an intrahepatic gallbladder. The rest of the findings were unremarkable. DESCRIPTION OF PROCEDURE: The patient was placed on the operating table in the supine position, and after the induction of general anesthesia, the patient's abdomen was prepped with ChloraPrep and draped in sterile fashion. A timeout was taken and pneumoperitoneum established above the umbilicus using a Veress needle to an intraabdominal pressure of 15 mmHg. A 5-mm supraumbilical port was placed as well as additional lateral 5-mm ports and a subxiphoid 12-mm port. The previously noted findings were observed. The gallbladder was decompressed using an aspirating needle and then grasped, and dissection was begun at the neck of the gallbladder where the peritoneum was opened medially and laterally using electrocautery. Blunt dissection continued to isolate the cystic duct which was identified as coursing from the neck of the gallbladder distally to the common bile duct. It was dissected proximally and distally for length. Next, the artery was identified coursing into the gallbladder, and it too was dissected proximally and distally for length. The peritoneum over the gallbladder was further opened medially and laterally using electrocautery, and then, after critical view of safety was taken, the duct and artery were sequentially divided after placing 2 large hemoclips proximally and distally. The gallbladder was then removed from the liver bed in a retrograde fashion using electrocautery. It was placed in a specimen retrieval bag and brought out through the subxiphoid port. Pneumoperitoneum was re-established, and copious irrigation was carried out using normal saline. Bleeding points in the liver bed were coagulated with the electrocautery and some oozing from the medial aspect of the liver bed was controlled with the placement of Surgicel. Again, hemostasis was verified, and then, a 10- mm Sang-Mues drain was placed in the right hepatorenal fossa and brought out through one of the 5-mm port sites and secured to the skin with 2-0 silk suture. Once again, for the final time, all irrigation was suctioned out. Hemostasis was verified, and then, the pneumoperitoneum was evacuated after all ports were removed under laparoscopic vision without evidence of bleeding from the port sites. The defect in the fascia at the subxiphoid port was closed with a [id number] 0 Vicryl, and all port sites were infiltrated with 0.50% Marcaine and the skin edges reapproximated with 4-0 Vicryl in a subcuticular continuous fashion. Steri-Strips and Band-Aid dressings were placed, and the drain was connected to bulb self-suction. The patient was aroused from general anesthesia and transferred to the postanesthesia care unit in stable condition, awake and alert. ESTIMATED BLOOD LOSS: 100 mL REPLACEMENTS: Crystalloid. DRAINS: One 10-mm Sang-Muse. SPECIMEN: Gallbladder and contents to Pathology. I, Bruno Foley MD, was physically present in the operating room from the time the patient was placed on the operating room table until he was transferred to the postanesthesia care unit in my accompaniment. MD DEZ Patton/[id number] MTDD
[2017-10-13 05:03] VITALS: BP 116/66; PULSE 67; TEMP 98
--- NOTE | 2017-10-13 09:03 | PN ---
Progress Note (short form) - Note Progress Note: Attending Surgeon POD #2 No c/o; tolerated diet VSS AF abdomen-benign; port site dressings c/d/i; SHANNA minimal output labs yesterday noted IMP: doing well PLAN: Advance diet; d/c SHANNA drain; d/c home to office f/u 7-10 days post op. Bruno Foley MD FACS
[2017-10-13] MEDS: FAMOTIDINE 20 MG/50 ML IVPB 20 MG/50 ML MG IVPB SCH (09:38)
--- NOTE | 2017-10-13 10:08 | DS ---
Physical Exam: SUBJECTIVE: Patient seen and examined, ambulatory at bedside, tolerating regular diet, denies any abdominal pain or tactile fevers. OBJECTIVE: This is a 47-year-old male with past medical history of hyperlipidemia presents for care today with 1 day of right upper quadrant pain. Patient states pain was a gradual onset which started after eating dinner last night. For dinner the patient had rice, lentils, chicken, avocado, and 2 beers. Patient started approximately 1-1/2 hours after finishing meal. Patient states he vomited multiple times throughout the night area patient remains nauseous at this time. Patient's states hiccups started approximately one hour prior to arrival in the hospital. He denies fevers, chills, chest pain, shortness of breath, diarrhea, dysuria. ER course was notable for: (1) U/S with gallstones and gall bladder thickening (2) Leukocytosis- 12.6 (3) LFT's WNL except ALT-42 Vital Signs Period Temp Pulse Resp BP Sys/Aleman Pulse Ox Last 24 Hr 98.0 F-98.9 F 67-80 16-18 116-128/66-80 94-96 PHYSICAL EXAM GENERAL: The patient is awake, alert, and fully oriented, in no acute distress. HEAD: Normal with no signs of trauma. EYES: PERRL, extraocular movements intact, sclera anicteric, conjunctiva clear. ENT: Ears normal, nares patent, oropharynx clear without exudates, moist mucous membranes. NECK: Trachea midline, full range of motion, supple. LUNGS: Breath sounds equal, clear to auscultation bilaterally, no wheezes, no crackles, no accessory muscle use. HEART: Regular rate and rhythm, S1, S2 without murmur, rub or gallop. ABDOMEN: Soft, trochar sites, clean and dry, no erythema noted, SHANNA removed by surgeon Dr Foley, no induration noted, minimal tenderness to trochar sites, normoactive bowel sounds, no guarding, no rebound, no hepatosplenomegaly, no masses. EXTREMITIES: 2+ pulses, warm, well-perfused, no edema. NEUROLOGICAL: Cranial nerves II through XII grossly intact. Normal speech, gait not observed. PSYCH: Normal mood, normal affect. SKIN: Warm, dry, normal turgor, no rashes or lesions noted. LABS CBC WBC 9.6 K/mm3 (4.0-10.8) D 10/12/17 07:00 RBC 4.33 M/mm3 (4.00-5.60) 10/12/17 07:00 Hgb 13.8 GM/dl (11.7-16.9) 10/12/17 07:00 Hct 41.4 % (35.4-49) 10/12/17 07:00 MCV 95.6 fl (80-96) 10/12/17 07:00 MCH 31.8 pg (25.7-33.7) 10/12/17 07:00 MCHC 33.3 g/dl (32.0-35.9) 10/12/17 07:00 RDW 11.6 % (11.9-15.9) L 10/12/17 07:00 Plt Count 286 K/MM3 (134-434) 10/12/17 07:00 MPV 8.7 fl (7.5-11.1) 10/12/17 07:00 Neutrophils % 78.6 % (42.8-82.8) 10/12/17 07:00 Lymphocytes % 12.8 % (8-40) D 10/12/17 07:00 Monocytes % 7.8 % (3.8-10.2) 10/12/17 07:00 Eosinophils % 0.2 % (0-4.5) D 10/12/17 07:00 Basophils % 0.6 % (0-2.0) 10/12/17 07:00 CMP Sodium 132 mmol/L (136-145) L 10/12/17 07:00 Potassium 3.8 mmol/L (3.5-5.1) 10/12/17 07:00 Chloride 103 mmol/L (98-107) 10/12/17 07:00 Carbon Dioxide 22 mmol/L (22-28) 10/12/17 07:00 Anion Gap 7 (8-16) L 10/12/17 07:00 BUN 15 mg/dl (7-18) D 10/12/17 07:00 Creatinine 0.7 mg/dl (0.6-1.3) 10/12/17 07:00 Creat Clearance w eGFR > 60 (>60) 10/12/17 07:00 Random Glucose 89 mg/dl (74-106) 10/12/17 07:00 Calcium 8.6 mg/dl (8.4-10.2) 10/12/17 07:00 Phosphorus 2.8 mg/dl (2.5-4.6) 10/12/17 07:00 Magnesium 1.9 mg/dL (1.8-2.4) 10/12/17 07:00 Total Bilirubin 0.7 mg/dl (0.2-1.0) 10/12/17 07:00 AST 38 U/L (10-42) D 10/12/17 07:00 ALT 55 U/L (10-40) H D 10/12/17 07:00 Alkaline Phosphatase 75 U/L (32-92) 10/12/17 07:00 Total Protein 6.9 g/dl (6.4-8.3) 10/12/17 07:00 Albumin 3.4 g/dl (3.5-5.0) L 10/12/17 07:00 Lipase 32 U/L (22-51) 10/09/17 13:00 Microbiology 10/10/17 11:30 Blood - Peripheral Venous Blood Culture - Preliminary NO GROWTH OBTAINED AFTER 48 HOURS, INCUBATION TO CONTINUE FOR 3 DAYS. 10/10/17 11:30 Blood - Peripheral Venous Blood Culture - Preliminary NO GROWTH OBTAINED AFTER 48 HOURS, INCUBATION TO CONTINUE FOR 3 DAYS. imaging: RAD/CHEST PA LAT ADDENDUM ADDENDUM #1 Michelle LOCKETT MD notified of findings on 10/10/2017 at 0718 hours. Patient admitted. ORIGINAL REPORT Chest: Right upper quadrant pain. Cholecystitis Imaging reveals an elevated right hemidiaphragm, normal heart, normal aorta and prominent [place]. The lungs are well-inflated. An acute infiltrate or failure is not seen. The angles are sharp and the soft tissues are intact. The may be some focal pleural thickening along the lower left chest wall. The bones and soft tissues appear intact. Impression: No acute pathology. Elevated right hemidiaphragm. Focal pleural thickening lower left chest wall. Correlation and follow-up recommended. CT may be of help for further evaluation. Reported By: Jeff Wolf MD 10/10/[address] chest with IV contrast. Indication: Focal pleural thickening on chest x-ray. Technique: CT of the chest performed following intravenous administration of 100 mL of Omnipaque 320 contrast. Comparison: No prior chest CT. Findings: Large airways of the central tracheobronchial tree are patent with no discrete endobronchial nodularity. There is dependent subsegmental atelectasis in both lung bases. Subsegmental atelectasis versus scarring noted in the lingula and posterior right upper lobe. No evidence of pulmonary mass. No pleural effusion or pneumothorax. Heart is prominent in size. No pericardial effusion. Normal caliber thoracic aorta and main pulmonary arteries. No pathologically enlarged mediastinal, hilar or axillary lymph nodes by CT size criteria. Evaluation of the upper abdomen demonstrates distended gallbladder with wall thickening and pericholecystic fat stranding. No fracture in the visualized osseous structures. Impression: 1. Subsegmental atelectasis in both lung bases. Linear scarring versus atelectasis in the posterior right upper lobe and lingula. 2. Distended gallbladder with wall thickening and pericholecystic fat stranding. Please correlate clinically for acute cholecystitis. Reported By: Michael Abel DO 10/10/17 1312 HOSPITAL COURSE: Patient was admitted to the hospital for acute cholecystits, s/p lap jonas POD #2, patient was treated preoperatively with zosyn, Dr Ching ID was consulted. leukocytosis resolved, patient remained afebrile and tolerated regular low fat diet. PLAN - discharge home - low fat diet - strict follow up with Dr Foley within 1 week Date of Admission:10/09/17 Date of Discharge: 10/13/17 Minutes to complete discharge: 45 Discharge Summary Reason For Visit: DIVERTICULITIS Current Active Problems Abdominal pain (Acute) Acute cholecystitis (Acute) Condition: Stable - Instructions Diet, Activity, Other Instructions: Dr. Foley Discharge Instructions Dear WILLIAM LIMON, Post Operative Instructions Physical activity Resume your normal everyday activity as tolerated no heavy lifting or exercise until seen by your surgeon. You may walk unlimited amounts of and climb stairs. You may resume driving the car when you feel safe and comfortable behind the wheel. Wound care If you have a bandage, leave it on, and keep dry for 48 - 72 hours. After that time discard the outer bandage. If there are tapes on the skin under the outer bandage, leave them in place. They will peel off in the next 7 to 10 days. Do Not peel them off. You may shower 2 days after surgery. If there are tapes present on the skin, they can get wet. Diet There are no dietary restrictions. Eat healthy, high-fiber foods. Drink 6 to 8 glasses of liquid each day. This will assist in keeping your bowels are regular. Pain management You may take Tylenol or acetaminophen or Ibuprofen (for example, Motrin, Advil etc.) Any pain prescription medication ordered should be taken as prescribed for moderate to severe pain. Call Dr. Foley for any of the following: Severe pain not relieved by medication Fever of 101 or higher Excessive bleeding or drainage on dressing Inability to urinate Call the office at [phone] for a post operative appointment in 7 - 10 days. Referrals: Bruno Foley MD [Staff Physician] - Disposition: HOME - Home Medications Comprehensive Discharge Medication List: Ambulatory Orders Wheat Dextrin [Benefiber] 1 each PO TID #0 powd.pack 02/10/16 This patient is new to me today: No Emergency Visit: Yes ED Registration Date: 10/09/17 Care time: The patient presented to the Emergency Department on the above date and was hospitalized for further evaluation of their emergent condition. Critical Care patient: No - Discharge Referral Referred to [facility] Med P.C.: No
[2017-10-13] MEDS ORDERED: FAMOTIDINE 20 MG TABLET PO SCH (10:15)
--- NOTE | 2017-10-13 15:34 | PATH ---
Surgical Pathology Report Patient Name: WILLIAM WOOD Med. Rec. #: [id number] /Age/Gender: 1970 (Age: 47) / M Account: [id number] Location: ON LICENSE OF [facility] MED-SURG Taken: 10/11/2017 Received: 10/11/2017 Reported: 10/13/2017 Physicians: Bruno Foley MD Specimen(s) Received GALLBLADDER Clinical History Acute cholecystitis Final Diagnosis GALLBLADDER, CHOLECYSTECTOMY: ACUTE AND CHRONIC CHOLECYSTITIS. CHOLELITHIASIS. Electronically Signed Mary Miller M.D. Gross Description Received in formalin, labeled "gallbladder," is a 10.0 x 3.0 x 2.3 cm. gallbladder with a 0.2 cm. in length portion of cystic duct attached. The outer surface is andrade-pink with multifocal defects and varies from smooth to shaggy. The lumen contains yellow, sludgelike bile as well as abundant irregular to fragmented choleliths ranging from 0.1-0.5 cm in greatest dimension. The mucosa is brown and focally hyperemic. The wall of the gallbladder ranges from 0.1-0.7 cm. in thickness. [employer] [place] sections are submitted in one cassette. /10/12/201710/12/2017
== END 2017-10-13 10:36 | disposition home or self-care (01) | DRG 263 ==
LOC: FER 12:30 → OBSVTOIN 16:03 → FM/S 16:03
PROVIDERS: ADMIT Internal Medicine; ATTEND Nurse Practitioner Family
PROC: 0FT44ZZ Resection of Gallbladder, Percutaneous Endoscopic Approach (ICD-10-PCS; principal; 2017-10-11 15:54)
DX: K80.00 Calculus of gallbladder with acute cholecystitis without obstruction (principal); Q44.1 Other congenital malformations of gallbladder; I10 Essential (primary) hypertension; E78.5 Hyperlipidemia, unspecified; R06.6 Hiccough
CPT/HCPCS: 36415; 71046-TC; 71260-TC; 76705-TC; 80053; 81003; 83690; 83735; 84100; 85025; 85610; 86850; 86900; 86901; 87040; 88304-TC; 93005; 94010; 94760; 99282-25; J1644